=== PATIENT | male | born 1985 | race Caucasian/White ===

== ENCOUNTER 2023-04-24 17:50 | Outpatient (REF) | payer OTHER, SELFPAY ==
--- NOTE | ~2023-04-24 | MR_ITS ---
EXAMINATION: MR LUMBAR SPINE WITHOUT AND WITH CONTRAST CLINICAL INFORMATION: Subtle anesthesia, paresthesias of feet, cauda equina COMPARISON: None available. TECHNIQUE: MRI of the lumbar spine was obtained using routine sequences with and without contrast. Intravenous contrast: Gadavist 6.5 mL FINDINGS: Normal anatomic alignment. No suspicious marrow signal or focal osseous lesion. The vertebral body heights are maintained. Disc desiccation and height loss at L5-S1. The conus medullaris terminates at the level of L1-L2. The distal spinal cord is normal in appearance. The cauda equina nerve roots appear normal. No abnormal intradural enhancement. No significant abnormalities of the paraspinal musculature. Limited evaluation of the intra-abdominal structures without significant abnormalities. The abdominal aorta is of normal contour and caliber. SPINAL LEVELS: L1-L2: No significant spinal canal or neuroforaminal narrowing. L2-L3: No significant spinal canal or neuroforaminal narrowing. L3-L4: No significant spinal canal or neuroforaminal narrowing. L4-L5: No significant spinal canal or neuroforaminal narrowing. L5-S1: No significant spinal canal or neural foraminal narrowing. Shallow left eccentric disc bulge. MR/MR lumbar spine wo/w con IMPRESSION: Mild degenerative disc disease at L5-S1. Otherwise unremarkable examination without significant spinal canal stenosis, neural foraminal narrowing, or evidence of cauda equina nerve root compression.
== END 2023-04-24 17:51 | disposition home or self-care (01) ==
LOC: HO.MRI 17:50
PROVIDERS: Visit Provider Family Medicine
DX: R20.0 Anesthesia of skin (principal); R20.2 Paresthesia of skin
CPT/HCPCS: 72158; A9585